=== PATIENT | male | born 1960 | race Caucasian/White ===

== ENCOUNTER 2023-06-18 08:34 | Outpatient (REF) | payer BC, SELFPAY ==
--- NOTE | ~2023-06-18 | XR_ITS ---
EXAMINATION: 1. RADIOGRAPHS RIGHT KNEE 2. RADIOGRAPHS LEFT KNEE CLINICAL INFORMATION: Bilateral knee pain COMPARISON: None TECHNIQUE: 3 views of each knee were obtained FINDINGS: Right knee: Patient is status post right total knee arthroplasty. Components are in expected orientation. There is no periprosthetic fracture. No suprapatellar joint effusion. There is mild soft tissue swelling of the anterior knee, nonspecific. Left knee: No fracture or dislocation. Small suprapatellar joint effusion. Severe narrowing of the medial joint space height. Small tricompartmental marginal osteophytes. No focal soft tissue swelling of the anterior knee. XR/XR knee LT 3V IMPRESSION: 1. Unremarkable post arthroplasty radiographs of the right knee. 2. Moderate to severe degenerative changes of the left knee with small suprapatellar joint effusion.
--- NOTE | ~2023-06-18 | XR_ITS ---
EXAMINATION: 1. RADIOGRAPHS RIGHT KNEE 2. RADIOGRAPHS LEFT KNEE CLINICAL INFORMATION: Bilateral knee pain COMPARISON: None TECHNIQUE: 3 views of each knee were obtained FINDINGS: Right knee: Patient is status post right total knee arthroplasty. Components are in expected orientation. There is no periprosthetic fracture. No suprapatellar joint effusion. There is mild soft tissue swelling of the anterior knee, nonspecific. Left knee: No fracture or dislocation. Small suprapatellar joint effusion. Severe narrowing of the medial joint space height. Small tricompartmental marginal osteophytes. No focal soft tissue swelling of the anterior knee. XR/XR knee RT 3V IMPRESSION: 1. Unremarkable post arthroplasty radiographs of the right knee. 2. Moderate to severe degenerative changes of the left knee with small suprapatellar joint effusion.
== END 2023-06-18 08:35 | disposition home or self-care (01) ==
LOC: HO.HOSX 08:34
PROVIDERS: Visit Provider Orthopaedic Surgery
DX: M25.561 Pain in right knee (principal); M17.12 Unilateral primary osteoarthritis, left knee
CPT/HCPCS: 73562

== ENCOUNTER 2023-06-18 13:13 | Outpatient (AMB) | payer BC, SELFPAY ==
--- NOTE | 2023-06-18 13:22 | MHC.OFFVIS ---
Intake Vital Signs 06/18/23 13:25 Height 6 ft Weight 245 lb BMI 33.2 Intake Visit Reasons: [employer] WORKER-Bilateral Knee Pain Intake Note: Ad is a 63 year old male who presents today as a new patient to re-establish care with Dr. Kidd for his bilateral knee pain. Right TKA done with Dr. Kidd 10/23/2019. Patient reports minimal discomfort in his right knee. He describes his left knee pain sharp and severe in nature, 10/10. His left knee pain has gotten worse over the last few years in spite of continued non operative treatments. He has had multiple injections. The most recent injection gave him minimal relief. He has also done physical therapy for 12 weeks over the last 6 months which aggravated his pain. He has tried Tylenol and anti-inflammatory medicines which gave him minimal relief. Patient has difficulty walking even short distances because of his pain. At this point is left knee pain is interfering with his activities of daily living and his ability to sleep well through the night. Allergies outdoor allergies Allergy (Uncoded 06/18/23 13:26) Unknown Medication List - Last Reconciled 06/18/23 by Dani Kidd MD albuterol sulfate 90 mcg/actuation 0 mcg inhalation fexofenadine (Adrianne Allergy) 60 mg PO BID rosuvastatin 10 mg PO BEDTIME tiotropium-olodaterol 2.5-2.5 mcg/actuation (Stiolto Respimat) 2 puffs inhalation DAILY [facility] Surgical History (Updated 06/18/23 @ 13:27 by Saige Ortez CMA) History of total right knee replacement Social History (Updated 06/18/23 @ 13:27 by Saige Ortez CMA) Patient Tobacco Use Status: Former Tobacco user Quit Date: 2002 Current occupational status: employed Current occupation: [employer] Physical Exam Vital Signs: BMI result Body Mass Index 33.2 Const Other: Well-nourished well-developed very friendly male awake alert and oriented x3 in no acute distress Extrem Other: Bilateral lower extremity examination shows good capillary refill, no skin lesions noted, normal sensation light touch Right lower extremity examination shows that the surgical incision is well healed, no erythema, full active extension and flexion to 120 degrees, his patella tracks well Left knee examination shows a minimal effusion, palpable crepitus with range of motion, pain with range of motion, range of motion from -3 degrees to 115 degrees, no instability Results Reviewed Results Reviewed: X-rays of the patient's right knee taken today show a total knee arthroplasty in good position with no signs of loosening, no acute bony abnormalities X-rays of the patient's left knee taken today show severe joint space narrowing with grade 4 [id number] arthritis in the medial compartments, subchondral sclerosis, osteophyte formation, no acute bony abnormalities Assessment & Plan Assessment & Plan (1) Arthritis of left knee: Code(s): M17.12 - Unilateral primary osteoarthritis, left knee Plan: Mr. Pearce is doing very well after undergoing right total knee replacement surgery on 10/23/2019. He will continue with his home exercise program. 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 Patient does have progressively worsening left knee pain due to end-stage degenerative joint disease. At this point the patient has failed continued non operative treatments. The risks and benefits of left total knee replacement surgery were discussed at length with the patient. We had a discussion regarding implant in bearing options. We had a detailed discussion of the advantages and limitations of the specific implant designs, materials and bearing surfaces. All questions were answered to the patient's satisfaction. The patient wishes to proceed with surgery. Because the patient's symptoms are severe and intractable we will schedule surgery for as soon as possible. Coronavirus precautions will be taken. I will see the patient back 1 week prior to his surgery to answer any final questions that he might have. Feel free to call me at any time should questions regarding his orthopedic management arise. Thank you very much for asking me to see this very friendly gentleman. Orders: Orders XR knee LT 3V Today M25.562 - Pain in left knee XR knee RT 3V Today M25.561 - Pain in right knee Coding Level of Care Code Est Pt Level 2 (18195) Diagnoses Arthritis of left knee M17.12
[2023-06-18 13:25] VITALS: BMI 33.2
== END 2023-06-18 13:49 | disposition home or self-care (01) ==
PROVIDERS: PCP Family Medicine; Visit Provider Orthopaedic Surgery
DX: M17.12 Unilateral primary osteoarthritis, left knee (principal)
CPT/HCPCS: 99212